=== PATIENT | female | born 1990 | race Caucasian/White ===

== ENCOUNTER 2022-07-24 09:26 | Emergency (ER) | payer SELFPAY ==
[~2022-07-24] VITALS: Ht 157.5 cm; Wt 47.6 kg
[2022-07-24] MEDS ORDERED: AMPH15TA2 PO (09:58)
[2022-07-24] MEDS ORDERED: ESZO3TAB27 PO (09:58)
[2022-07-24] MEDS ORDERED: IV NORMAL SALINE 1000 ML BAG IV ONE (10:30)
[2022-07-24 10:47] LABS: HEMATOCRIT 43.7 % (31.2-41.9); MEAN CORPUSCULAR HEMOGLOBIN 31.3 uug (24.7-32.8); MEAN CORPUSCULAR VOLUME 93.1 fL (75.5-95.3); PLATELET COUNT (AUTO) 253 K/uL (179-408)
[2022-07-24 10:59] LABS: CARBON DIOXIDE 24 mmol/L (21-32); CHLORIDE 101 mmol/L (98-107); CREATININE 0.8 mg/dL (0.6-1.3); GLUCOSE 95 mg/dL (74-106); POTASSIUM 3.8 mmol/L (3.5-5.1); UREA NITROGEN, BLOOD 15 mg/dL (7-18)
[2022-07-24 11:02] LABS: ETHANOL < 3 MG/DL (0-0)
[2022-07-24 11:05] LABS: ALANINE AMINOTRANSFERASE 19 U/L (14-59); ALKALINE PHOSPHATASE 47 U/L (50-136); ASPARTATE AMINOTRANSFERASE 13 U/L (15-37); BILIRUBIN,DIRECT 0.2 mg/dL (0.0-0.2); BILIRUBIN,TOTAL 0.6 mg/dL (0.2-1.0); TOTAL PROTEIN, SERUM 8.4 g/dL (6.4-8.2)
--- NOTE | 2022-07-24 12:18 | NUR ---
Social Work consult was requested for a patient in the emergency room for mental health resources. Patient is a 32-year-old female. Patient is alert and oriented X4. Patient presents with anxious mood and congruent affect. Patient states her primary service advocate contact is her boyfriend, Shamar Laird ([phone]) and she lives with him at [address] [place] [address] in a two-story house. Patient states he is currently on a plane to [facility]. Patient states she also has a executive housekeeper, Viviane ([phone]). Patient he is currently unemployed and not driving. Patient denies a history of substance abuse. Patient states she has a diagnosis of psychosis and ADHD, and her mother was diagnosed with schizophrenia. Patient states she is currently having auditory and visual hallucinations. Patient states she was previously voluntarily admitted to [place] [facility] [address] ([phone]) and is open to going back for voluntary admission. ALONZO spoke with the patients executive housekeeper, Viviane ([phone]) over the phone and in person and she states that she will drive the patient to [place] [address] ([phone]). ALONZO provided the patient with resources for [facility] [id number] [place] [address] [place] [address] ([phone]) as well. Patient denies suicidal or homicidal ideation. ALONZO faxed the patients clinical information to [facility] (fax: [phone]) and confirmed that the information was received. ALONZO provided the patient and the patients executive housekeeper with directions to [place] [address] ([phone]) for discharge.
--- NOTE | 2022-07-24 12:24 | NUR ---
pt discharged to medical housekeeper/friend and plan is for patient to voluntarily go to a [facility] hospital. patient provided with directions to facility
[2022-07-24 13:29] LABS: ACETAMINOPHEN < 10.0 ug/mL (10-30)
== END 2022-07-24 12:34 | disposition home or self-care (01) ==
LOC: ER 09:26
DX: F29 Unspecified psychosis not due to a substance or known physiological condition (principal); M32.9 Systemic lupus erythematosus, unspecified; R94.31 Abnormal electrocardiogram [ECG] [EKG]
CPT/HCPCS: 80076; 80048; 85025; 36415; 93005; 71045; 99285; 96360; 80299; 80320; J7040; A4663; G0480